=== PATIENT | male | born 1970 | race African-American/Black ===

== ENCOUNTER 2021-11-16 13:35 | Emergency (ER) | payer OTHER ==
[2021-11-16 14:43] LABS: BASOPHIL 0.4 % (0-2); EOSINOPHIL 0.4 % (0-5); HCT 45.7 % (42.0-52.0); HGB 15.9 g/dl (13.2-18.0); LYMPHOCYTE 19.6 % (15-48); MCH 31.7 pg (25.0-31.0); MCHC 34.8 g/dL (32.0-36.0); MONOCYTE 6.9 % (0-12); MPV 9.4 fL (6.0-9.5); NEUTROPHIL 72.2 % (41-80); NRBC 0; PLT 207 K/uL (150-400); RBC 5.02 M/uL (4.70-6.00); RDW 13.2 % (11.5-14.0); WBC 10.8 K/uL (4.0-10.5)
[2021-11-16 14:59] LABS: BUN/CREAT RATIO (CALC) 11.3 RATIO; CREATININE 1.06 mg/dL (0.67-1.17); POTASSIUM 4.1 mmol/L (3.5-5.1)
== END 2021-11-16 16:12 | disposition home or self-care (01) ==
LOC: FER 13:35
PROVIDERS: Nurse Practitioner Family
DX: G43.909 Migraine, unspecified, not intractable, without status migrainosus (principal); I10 Essential (primary) hypertension; E11.9 Type 2 diabetes mellitus without complications
CPT/HCPCS: 36415; 70450; 80048; 85025; J1100; J1200; J1885; J2405; J7030